=== PATIENT | female | born 2000 | race Caucasian/White ===

== ENCOUNTER 2021-02-11 04:45 | Emergency (ER) | payer OTHER ==
[2021-02-11 06:21] LABS: BASOPHIL 0.5 % (0-2); EOSINOPHIL 1.4 % (0-5); HCT 36.7 % (37.0-47.0); HGB 12.3 g/dl (12.5-16.0); LYMPHOCYTE 16.6 % (15-48); MCH 31.1 pg (25.0-31.0); MCHC 33.5 g/dL (32.0-36.0); MCV 92.9 fL (78.0-100.0); MONOCYTE 8.8 % (0-12); MPV 10.5 fL (6.0-9.5); NEUTROPHIL 72.1 % (41-80); NRBC 0; PLT 279 K/uL (150-400); RBC 3.95 M/uL (4.20-5.40); RDW 12.7 % (11.5-14.0); WBC 11.8 K/uL (4.0-10.5)
[2021-02-11 06:40] LABS: ALBUMIN 3.5 g/dL (3.4-5.0); BILIRUBIN - TOTAL 0.2 mg/dL (0.2-1.0); BUN/CREAT RATIO (CALC) 19.2 RATIO; CREATININE 0.52 mg/dL (0.51-0.95); GLOBULIN (CALCULATION) 3.2 g/dL; POTASSIUM 3.7 mmol/L (3.5-5.1); TOTAL PROTEIN 6.7 g/dL (6.4-8.2)
[2021-02-11] MEDS ORDERED: NORCO 5-325 TA1 EACH PO (09:48)
[2021-02-13] MEDS ORDERED: IBUPROFEN800 M1 PO (11:01)
== END 2021-02-11 09:59 | disposition home or self-care (01) ==
LOC: FER 04:45
PROVIDERS: Emergency Medicine
DX: O02.1 Missed abortion (principal)
CPT/HCPCS: 36415; 76801; 80053; 84702; 85025; 86900; 86901; J1170; J2405

== ENCOUNTER → 2021-02-13 | Day surgery (SDC) | payer OTHER ==
[~2021-02-13] VITALS: Ht 154.9 cm; Wt 59.0 kg
[~2021-02-13] MED LIST: IBUPROFEN800 M1 PO; NORCO 5-325 TA1 EACH PO
[2021-02-13 09:38] LABS: HCT 35.4 % (37.0-47.0); HGB 11.8 g/dl (12.5-16.0); MCH 30.7 pg (25.0-31.0); MCHC 33.3 g/dL (32.0-36.0); MCV 92.2 fL (78.0-100.0); MPV 10.4 fL (6.0-9.5); RBC 3.84 M/uL (4.20-5.40); RDW 12.6 % (11.5-14.0); WBC 10.6 K/uL (4.0-10.5)
== END | disposition home or self-care (01) ==
LOC: FAS 08:42
PROVIDERS: Obstetrics & Gynecology
DX: O02.1 Missed abortion (principal); F41.9 Anxiety disorder, unspecified; F32.9 Major depressive disorder, single episode, unspecified
CPT/HCPCS: 36415; 86850; 86900; 86901; J1100; J1885; J2250; J2405; J2704; J3010; J7050; J7120